=== PATIENT | male | born 1930 | race Caucasian/White ===

== ENCOUNTER 2017-06-02 19:55 | Emergency (ER) | payer MEDICARE ==
[2017-06-02 21:42] LABS: #Lymphocytes 0.8 thou/uL (1.20-3.40); #Monocytes 0.5 thou/uL (0.11-0.59); #Neutrophils 11.4 thou/uL (1.40-6.50); %Basophils 0.1 % (0.0-1.0); %Eosinophils 0.1 % (0.0-10.0); %Lymphocytes 6.5 % (21.0-51.0); %Monocytes 3.7 % (0.0-10.0); Hematocrit 32.8 % (42.0-52.0); Mean Platelet Volume 8.1 fL (7.4-10.4); Red Blood Cell (RBC) Count 3.48 mill/uL (4.70-6.10); White Blood Cell (WBC) Count 12.7 thou/uL (4.8-10.8)
[2017-06-02 22:01] LABS: Lactic Acid - Sepsis 0.9 mmol/L (0.5-2.2)
[2017-06-02 22:05] LABS: ALT (SGPT) Less than 7 U/L (8-55); AST (SGOT) 13 U/L (5-34); Alkaline Phosphatase 68 U/L (40-150); Anion Gap 13 mmol/L (10-20); BUN (Urea Nitrogen) 30 mg/dL (8.4-25.7); Bilirubin, Total 0.5 mg/dL (0.2-1.2); Calc. Creatinine Clearance 0 mL/min (70-130); Calcium 8.3 mg/dL (7.8-10.44); Carbon Dioxide 23 mmol/L (23-31); Chloride 109 mmol/L (98-107); Estimated GFR-MDRD 72; Globulin 2.5 g/dL (2.4-3.5); Lipase 4 U/L (8-78); Protein, Total 5.7 g/dL (5.8-8.1)
[2017-06-02 22:08] LABS: Troponin I 0.012 ng/mL (< 0.028)
[2017-06-02 22:18] LABS: Bilirubin Negative (Negative); Blood, Urine Negative (Negative); Glucose, Urine (Dipstick) Negative (Negative); Ketone, Urine Negative (Negative); Nitrite Positive (Negative); Protein, Urine (Dipstick) Negative (Neg-Trace); Urobilinogen 0.2 mg/dL (0.2-1.0)
[2017-06-02 22:20] LABS: Bacteria/HPF Rare-Few HPF (None Seen); Hyaline Casts/LPF 0-3 HYALINE CAST LPF (0-3 Hyaline); RBC/HPF 0-3 HPF (0-3); Squamous Epithelial 0-3 HPF (0-3)
[2017-06-02] MEDS ORDERED: cefTRIAXone\\ROCEPHIN 1 GM VIAL ONE (22:48)
== END 2017-06-03 01:13 | disposition home or self-care (01) ==
LOC: ERS 19:55
DX: N39.0 Urinary tract infection, site not specified (principal); E78.5 Hyperlipidemia, unspecified; I10 Essential (primary) hypertension; G30.9 Alzheimer's disease, unspecified; F02.80 Dementia in other diseases classified elsewhere, unspecified severity, without behavioral disturbance, psychotic disturbance, mood disturbance, and anxiety; G20 Parkinson's disease; G47.30 Sleep apnea, unspecified; I65.29 Occlusion and stenosis of unspecified carotid artery; Z87.891 Personal history of nicotine dependence; Z86.73 Personal history of transient ischemic attack (TIA), and cerebral infarction without residual deficits; Z79.82 Long term (current) use of aspirin; Z79.899 Other long term (current) drug therapy
CPT/HCPCS: 36415; 51701; 80053; 81003; 81015; 82553; 83605; 83690; 83880; 84484; 85025; 87040; 96365; J0696

== ENCOUNTER 2017-11-19 15:53 | Inpatient (IN) | payer MEDICARE ==
[2017-11-19 16:36] LABS: #Eosinphils 0.1 thou/uL (0.0-0.7); #Lymphocytes 1.3 thou/uL (1.20-3.40); #Monocytes 0.7 thou/uL (0.11-0.59); #Neutrophils 7.4 thou/uL (1.40-6.50); %Basophils 0.1 % (0.0-1.0); %Eosinophils 0.5 % (0.0-10.0); %Monocytes 7.4 % (0.0-10.0); Hemoglobin 11.7 g/dL (14.0-18.0); Mean Corpuscular HGB CONC 30.8 g/dL (32.0-36.0); Mean Corpuscular Hemoglobin 28.2 pg (27.0-31.0); Mean Corpuscular Volume 91.5 fl (80.0-94.0); Mean Platelet Volume 9.4 fL (7.4-10.4); Platelet Count 200 thou/uL (130-400); RBC Distribution Width 15.4 % (11.5-14.5); Red Blood Cell (RBC) Count 4.16 mill/uL (4.70-6.10); White Blood Cell (WBC) Count 9.5 thou/uL (4.8-10.8)
[2017-11-19 16:58] LABS: ALT (SGPT) 16 U/L (8-55); AST (SGOT) 26 U/L (5-34); Albumin 2.9 g/dL (3.4-4.8); Alkaline Phosphatase 76 U/L (40-150); Anion Gap 14 mmol/L (10-20); BUN (Urea Nitrogen) 58 mg/dL (8.4-25.7); Bilirubin, Total 0.4 mg/dL (0.2-1.2); Calc. Creatinine Clearance 0 mL/min (70-130); Calcium 8.4 mg/dL (7.8-10.44); Carbon Dioxide 21 mmol/L (23-31); Chloride 125 mmol/L (98-107); Estimated GFR-MDRD 26; Globulin 3.2 g/dL (2.4-3.5); Glucose 112 mg/dL (83-110); Potassium 4.7 mmol/L (3.5-5.1); Protein, Total 6.1 g/dL (5.8-8.1); Sodium 155 mmol/L (136-145)
--- NOTE | 2017-11-19 17:55 | CT ---
CT OF THE BRAIN WITHOUT CONTRAST: COMPARISON: 08/27/2016 HISTORY: Altered mental status for 2 weeks. TECHNIQUE: Multiple contiguous axial images were obtained in a CT of the brain without contrast. FINDINGS: There are stable scattered hypodensities in the subcortical and periventricular white matter, likely secondary to small vessel ischemic disease. There is prominence of the lateral ventricles which may be secondary to ex vacuole dilatation and other ventricles secondary to cerebral atrophy. Hydrocepha abdirizak cannot be entirely excluded. There is no evidence of intracranial hemorrhage or extraaxial fluid collection. The findings are stable compared to the prior exam. The calvarium and overlying soft tissues are unremarkable. The visualized paranasal sinuses and mast oid air cells are well-aerated. IMPRESSION: Stable exam with small vessel ischemic disease and cerebral atrophy. POS: [facility]
--- NOTE | 2017-11-19 18:06 | RAD ---
SINGLE VIEW OF THE CHEST: COMPARISON: 10/31/2016 HISTORY: Altered mental status. The patient is not eating. FINDINGS: Single view of the chest shows a normal size cardiomediastinal silhouette. The patient is status pos t sternotomy. The pacemaker is unchanged in position. There is no evidence of consolidation, mass, or pleural effusion. IMPRESSION: No evidence of acute cardiopulmonary disease. POS: [facility]
[2017-11-19 18:30] LABS: CKMB 8.1 ng/mL (0-6.6)
[2017-11-19 19:45] LABS: Bilirubin Negative (Negative); Blood, Urine Negative (Negative); Clarity CLEAR (Clear); Glucose, Urine (Dipstick) Negative (Negative); Leukocyte Negative (Negative); Nitrite Negative (Negative); Protein, Urine (Dipstick) Negative (Neg-Trace); Specific Gravity, Urine 1.023 (1.002-1.036); Urobilinogen 0.2 mg/dL (0.2-1.0)
[2017-11-19 20:55] LABS: Troponin I 0.054 ng/mL (< 0.028)
[2017-11-19] MEDS ORDERED: HYDROcodone/Acetaminophen 5/325 mg Tablet PO PRN (22:26)
[2017-11-19] MEDS ORDERED: Ondansetron HCl/PF 4 MG/2 ML Vial IVP PRN (22:26)
[2017-11-19] MEDS ORDERED: Acetaminophen 325 MG TAB PO PRN (22:26)
[2017-11-19] MEDS ORDERED: Sodium Chloride 0.9% 1,000 ML IV SCH (22:28)
[2017-11-19 23:51] LABS: Troponin I 0.065 ng/mL (< 0.028)
[2017-11-19 23:53] VITALS: BMI 21.7
[2017-11-20] MEDS: Dextrose 5% in Water 1,000 ML IV SCH ×3 (00:21→21:38)
[2017-11-20 05:22] LABS: #Eosinphils 0.1 thou/uL (0.0-0.7); #Lymphocytes 1.3 thou/uL (1.20-3.40); #Monocytes 0.6 thou/uL (0.11-0.59); #Neutrophils 6.6 thou/uL (1.40-6.50); %Basophils 0.5 % (0.0-1.0); %Eosinophils 1.4 % (0.0-10.0); %Neutrophils 76.2 % (42.0-75.0); Hemoglobin 10.4 g/dL (14.0-18.0); Mean Corpuscular Hemoglobin 28.1 pg (27.0-31.0); Mean Corpuscular Volume 90.8 fl (80.0-94.0); Mean Platelet Volume 9.5 fL (7.4-10.4); Platelet Count 179 thou/uL (130-400); RBC Distribution Width 15.1 % (11.5-14.5); Red Blood Cell (RBC) Count 3.69 mill/uL (4.70-6.10); White Blood Cell (WBC) Count 8.7 thou/uL (4.8-10.8)
[2017-11-20 05:40] LABS: Anion Gap 12 mmol/L (10-20); BUN (Urea Nitrogen) 60 mg/dL (8.4-25.7); Calc. Creatinine Clearance 29 mL/min (70-130); Calcium 8.2 mg/dL (7.8-10.44); Carbon Dioxide 21 mmol/L (23-31); Cardiac Risk 3.4 (Less than 4.5); Chloride 125 mmol/L (98-107); Cholesterol 110 mg/dl (< 200 Desired); Estimated GFR-MDRD 31; Glucose 138 mg/dL (83-110); HDL Cholesterol 32 mg/dL (>60 Neg Risk); LDL Cholesterol, Calculated 51 mg/dL; Potassium 4.2 mmol/L (3.5-5.1); Sodium 154 mmol/L (136-145); Triglycerides 137 mg/dL (Less than 150)
--- NOTE | 2017-11-20 07:57 | HP ---
DATE OF ADMISSION: 11/19/2017 CHIEF COMPLAINT: Altered mental status. HISTORY OF PRESENT ILLNESS: This is an 87-year-old white male living in a longterm with a histor y of stroke many years ago, with a history of severe Parkinson's disease, and has a very poor quality of life and has alternate mental status changes according to the . Patient is a DNR according t o the . For the past 2 days, he has not been eating or drinking any water and he was looking eveline y dehydrated with no urination. Patient was admitted to the ER for severe dehydration and for sudden change in the mental status. Patient had a CT of the head, which was unremarkable and did not show any evidence of bleed. Chest x-ray was normal. Patient was noted to have a severely dehydrated elec trolytes with sodium of 155 and has high suspicion for another stroke, as he has a history of stroke. The patient has history of known coronary artery disease with history of CABG done in . Since , he has been very stable and he sees Dr. Justin Baez for his Cardiology. Patient is complete ly nonverbal and is unable to talk or give any history at this time. Most of the history is obtained from the patient's at the bedside. PAST MEDICAL HISTORY: 1. Coronary artery disease with CABG. 2. Parkinson's disease. 3. Hypertension. 4. Hyperlipidemia. 5. History of severe Alzheimer's dementia. 6. History of pacemaker placement. 7. History of CVA. 8. History of dyslipidemia. 9. History of recurrent falls. PAST SURGICAL HISTORY: 1. Pacemaker placement. 2. Coronary artery disease with coronary artery bypass graft. 3. History of right femoral neck fracture repair. 4. History of PEG tube placement and subsequent removal. ALLERGIES: Patient is allergic to MORPHINE and IODINE. FAMILY HISTORY: Family history has been reviewed and reconciled, unable to contribute to the present complaint. SOCIAL HISTORY: The patient has advanced directives, which is DNR, I discuss again this with to day. He lives in a longterm at this time and no history of alcohol, no history of illicit drug u se. HOME MEDICATIONS: 1. Amlodipine 5 mg p.o. at bedtime. 2. Aspirin 81 mg daily. 3. Atorvastatin 20 mg daily. 4. Carbidopa 1 tablet p.o. t.i.d. 5. Plavix 75 mg p.o. daily. 6. Docusate 100 mg p.o. daily. 7. Zetia 10 mg at bedtime. 8. Finasteride 5 mg p.o. daily. 9. Lasix 20 mg p.o. daily. 10. Ipratropium nebulizer treatment q.4 hours. 11. Lactulose 30 mg p.o. daily. 12. Keppra 250 mg p.o. b.i.d. 13. Lisinopril 2.5 mg p.o. daily. 14. Metoprolol 100 mg p.o. daily. 15. Potassium mEq p.o. daily. 16. Sertraline. 17. Prednisone 20 mg p.o. daily. REVIEW OF SYSTEMS: Unable to obtain any review of systems at this time because of the severe mental status changes. PHYSICAL EXAMINATION: VITAL SIGNS: Blood pressures are 104/66, heart rate is 103, respirations 18, saturation 96% on room air. GENERAL: The patient is moderately built, moderately nourished, does not appear in acute distress. CARDIOVASCULAR: S1, S2 normal. No murmurs, rubs, or gallops. LUNGS: Bilateral air entry was equal. No wheezing, no crackles. ABDOMEN: Soft, nontender. No guarding, no rebound tenderness. Bowel sounds normal. MUSCULOSKELETAL: No calf tenderness. No pedal edema, no joint tenderness, no joint swelling. SKIN: No cyanosis, no erythema, no rash, no pallor. [employer]: Cranial examination could not be noted, as patient is completely nonverbal. PSYCHIATRIC: No signs of agitation or elise was noted. NECK: No thyromegaly. No JVD was noted. LABORATORY DATA: Sodium is 155, potassium 4.7, chloride is 125, bicarbonate is 21, BUN is 58, creati nine is 2.38. Troponin 0.050. WBC 9.5, hemoglobin 11.7, hematocrit 38.1, platelets are 200. UA was negative for any urinary tract infection. CT of the head was done, which was negative. Chest x-ray was done showed no evidence of any cardiopu lmonary process. ASSESSMENT AND PLAN: 1. Transient ischemic attack. 2. Severe dehydration. 3. Severe hypernatremia. 4. Acute kidney injury on chronic kidney disease. 5. Non-ST elevation myocardial infarction. PLAN: 1. Plan is to start the patient on D5W 100 mL hour and closely monitor for improvement of his sodium levels. Patient has severe free-water deficit secondary to not drinking any water at all. Patient being on Lasix and other diuretics. We will hold off on all these diuretics at this time. 2. Patient has worsening renal functions, likely from dehydration as explained above. We will trudi nue with above fluids and avoid nephrotoxic medications. 3. Patient has elevated troponins, most likely could be demand ischemia or patient has a known histo ry of coronary artery disease with coronary artery bypass graft. I will closely monitor the patient. We will continue the patient on the beta-blockers and statin, and we will plan to do a 2D echo per TIA protocol. 4. We will evaluate the patient for any stroke with an MRI. 5. The patient has severe Parkinson's disease. I will restart the patient on carbidopa and levodopa . Plan to consult Neurology if the patient's mental status gets worsened or did not improve. 6. Deep venous thrombosis prophylaxis, patient is on Lovenox 40 mg subcutaneous daily. I spent 70 minutes with this patient.
[2017-11-20] MEDS ORDERED: Enoxaparin Sodium 40 MG/0.4 ML SYRINGE SC SCH (09:00)
[2017-11-20] MEDS ORDERED: Famotidine/PF 20 mg/2ml Vial SLOW IVP SCH (09:00)
[2017-11-20] MEDS: Famotidine/PF 20 mg/2ml Vial SLOW IVP SCH (09:00)
[2017-11-20] MEDS: Enoxaparin Sodium 30 MG/0.3 ML SYRINGE SC SCH (09:01)
[2017-11-20] MEDS: Clopidogrel Bisulfate 75 MG TAB PO SCH (09:15)
[2017-11-20] MEDS: Carbidopa/Levodopa CR 50-200 mg Tablet PO SCH ×3 (09:15→21:37)
[2017-11-20] MEDS: predniSONE 20 MG TAB PO SCH (09:15)
[2017-11-20] MEDS: Aspirin 81 mg Enteric Coated Tablet PO SCH (09:15)
[2017-11-20] MEDS: Carvedilol 3.125 MG TAB PO SCH ×2 (09:15→16:49)
[2017-11-20] MEDS: Docusate 100 MG CAP PO SCH ×3 (09:16→21:37)
[2017-11-20] MEDS: levETIRAcetam 500 MG TAB PO SCH ×2 (09:16→21:42)
[2017-11-20] MEDS: Finasteride 5 MG TAB PO SCH (09:16)
--- NOTE | 2017-11-20 11:43 | PDOC.PN ---
- Subjective Encounter Start Date: 11/20/17 Encounter Start Time: 11:42 Patient seen and examined, no new issues or complaints, at bedside, all questions answered. - Objective Vital Signs & Weight: Vital Signs (12 hours) Temp Pulse Pulse Pulse Resp BP BP 11/20/17 10:52 90 16 11/20/17 10:04 98 F 102 H 18 11/20/17 09:28 111 H 102 H 104/63 124/75 11/20/17 08:38 108 H 123/67 11/20/17 08:30 98 F 102 H 18 11/20/17 07:36 95 18 11/20/17 04:38 97.2 F L 103 H 17 11/20/17 03:34 106 H 16 BP Pulse Ox 11/20/17 10:52 11/20/17 10:04 118/69 99 11/20/17 09:28 11/20/17 08:38 11/20/17 08:30 11/20/17 07:36 96 11/20/17 04:38 99/66 98 11/20/17 03:34 97 I&O: 11/19/17 11/20/17 11/21/17 06:59 06:59 06:59 Intake Total 600 Balance 600 Result Diagrams: 11/20/17 05:03 11/20/17 05:03 Phys Exam - Physical Examination Constitutional: NAD non verbal HEENT: PERRLA, moist MMs, sclera anicteric Neck: no nodes, no JVD, supple Respiratory: no wheezing, no rales, no rhonchi Cardiovascular: RRR, no significant murmur, no rub Gastrointestinal: soft, non-tender, no distention Musculoskeletal: no edema, pulses present Dx/Plan (1) Mental status change Code(s): R41.82 - ALTERED MENTAL STATUS, UNSPECIFIED Status: Acute (2) JUAN (acute kidney injury) Code(s): N17.9 - ACUTE KIDNEY FAILURE, UNSPECIFIED Status: Acute (3) Dehydration Code(s): E86.0 - DEHYDRATION Status: Acute (4) Hypokalemia Code(s): E87.6 - HYPOKALEMIA Status: Acute (5) Parkinson disease Code(s): G20 - PARKINSON'S DISEASE Status: Acute (6) HLD (hyperlipidemia) Code(s): E78.5 - HYPERLIPIDEMIA, UNSPECIFIED Status: Chronic (7) HTN (hypertension) Code(s): I10 - ESSENTIAL (PRIMARY) HYPERTENSION Status: Chronic (8) History of TIA (transient ischemic attack) Status: Chronic - Plan * Neurological work up pending * Neurological evaluation pending as well * continue current plan of care for now * patient remains confused and not back to his baseline * case and plan d/w patient's at length, she understands and agrees with this plan
--- NOTE | 2017-11-20 21:03 | CON ---
DATE OF CONSULTATION: 11/20/2017 CONSULTING PHYSICIAN: Hospitalist Service. IMPRESSION: 1. Lethargy secondary to dehydration and anorexia. 2. Parkinson's disease with severe dementia. 3. Prior stroke with right-sided weakness. 4. Coronary artery disease. PLAN: 1. Continue rehydration. 2. Speech therapy evaluation to determine if the patient will be able to maintain oral intake. 3. The patient can return to the residential for comfort measures. Mr. Enriquez is an 87-year-old gentleman with multiple medical problems. He has been in the [facility] now for the last 2 years. Over the last 2 weeks, he has deteriorated as far as his level of respo nsiveness. At baseline, his reports that he usually recognizes her, but oftentimes cannot recal l the names of family members. He is unable to do anything for himself including feeding himself. O eveline the last 2 weeks, he has been refusing food and water. He became more lethargic and was brought into the hospital. His sodium level was 155. A CT scan of the brain was unremarkable. He has been placed on IV fluids. His reports he is a bit more responsive today. PAST HISTORY: As listed above including hypertension, hyperlipidemia. PAST SURGICAL HISTORY: Pacemaker implantation. ALLERGIES: MORPHINE, CODEINE. SOCIAL HISTORY: No tobacco or alcohol use. FAMILY HISTORY: Noncontributory. REVIEW OF SYSTEMS: Not obtainable. PHYSICAL EXAMINATION: VITAL SIGNS: Have been stable. He is afebrile at this point. HEENT: Pupils are equal. Conjunctivae are clear. Mucous membranes are dry. NECK: No lymphadenopathy noted. EXTREMITIES: No cyanosis noted or edema. NEUROLOGIC: He was essentially mute. I could not get him to follow any commands. His face was symm etric. He had some rhythmic tremulous movements of the lips. The tone in the right upper extremity was increased as compared to the left. He has more spontaneous movement on the left. He has partial contracture of both lower extremities. SUMMARY: This is an elderly man with dementia who has not been eating or drinking, has become dehydr ated and less responsive. The patient is DO NOT RESUSCITATE by his 's wishes. I do not see anyt regi to offer in his care.
[2017-11-20] MEDS: Amlodipine 5 MG TAB PO SCH (21:37)
[2017-11-20] MEDS: Atorvastatin Calcium 40 MG TAB PO SCH (21:37)
[2017-11-20] MEDS: Ezetimibe 10 MG TAB PO SCH (21:38)
[2017-11-21] MEDS: Famotidine/PF 20 mg/2ml Vial SLOW IVP SCH (08:41)
[2017-11-21] MEDS: Enoxaparin Sodium 30 MG/0.3 ML SYRINGE SC SCH (08:41)
[2017-11-21] MEDS ORDERED: FLU VACC TS2017-18 (>65YR) 0.5 ML SYRINGE IM ONE (09:00)
[2017-11-21] MEDS: Dextrose 5% in Water 1,000 ML IV SCH ×2 (09:09→18:32)
[2017-11-21] MEDS: predniSONE 20 MG TAB PO SCH (09:11)
[2017-11-21] MEDS: Carvedilol 3.125 MG TAB PO SCH ×2 (09:11→17:59)
[2017-11-21] MEDS: Carbidopa/Levodopa CR 50-200 mg Tablet PO SCH ×3 (09:12→20:29)
[2017-11-21] MEDS: levETIRAcetam 500 MG TAB PO SCH ×2 (09:12→20:30)
[2017-11-21] MEDS: Finasteride 5 MG TAB PO SCH (09:12)
[2017-11-21] MEDS: Clopidogrel Bisulfate 75 MG TAB PO SCH (09:12)
[2017-11-21] MEDS: Aspirin 81 mg Enteric Coated Tablet PO SCH (09:12)
[2017-11-21] MEDS: Docusate 100 MG CAP PO SCH ×3 (09:12→20:29)
[2017-11-21] MEDS ORDERED: Esmolol 100 MG/10 ML VIAL IVP PRN (12:15)
[2017-11-21] MEDS ORDERED: Amiodarone HCl 150 MG, Admixture Fee 1 EACH in Dextrose 5% in Water 100 ML IVPB SCH ×6 (14:30)
[2017-11-21] MEDS ORDERED: Amiodarone In Dextrose 200 ML IVPB SCH (14:45)
[2017-11-21] MEDS ORDERED: Digoxin 0.5 MG/2 ML AMP SLOW IVP SCH (14:45)
[2017-11-21] MEDS ORDERED: Metoprolol Tartrate 5 MG/5 ML VIAL IVP SCH ×2 (14:45)
--- NOTE | 2017-11-21 15:09 | CON ---
DATE OF CONSULTATION: 11/21/2017 CARDIOLOGY CONSULTATION REASON FOR CONSULTATION: Atrial flutter with rapid ventricular response. HISTORY OF PRESENT ILLNESS: Mr. Enriquez is an 87-year-old patient, primary orientor is Dr. Justin Baez. The patient was admitted to the hospital with weakness, fatigue, and lack of energy. Failure to thrive. He is thought to be dehydrated. He also had a previous stroke and Dr. Sherwood was consulted, but did not see evidence of new stroke. The patient did develop tachycardia here, he developed atrial flutter with a rapid ventricular respon se. The patient is noncommunicative. MEDICATIONS AT HOME: Atorvastatin 20 mg a day, metoprolol 100 mg a day, but he has been n.p.o. here, he cannot eat, clopidogrel 75 mg a day, furosemide, aspirin, amlodipine, lisinopril, and potassium. REVIEW OF SYSTEMS: Not obtainable. The patient is noncommunicative. PAST MEDICAL HISTORY: 1. Coronary artery disease, previous bypass surgery, previous pacemaker insertion. 2. History of Alzheimer's dementia. 3. History of stroke affecting the right side of his body. PAST SURGICAL HISTORY: 1. Pacemaker insertion. 2. Previous bypass surgery. ALLERGIES: To MORPHINE and IODINE. FAMILY HISTORY: The patient is noncommunicative. SOCIAL HISTORY: Lives in a care home. Medications as listed above. PHYSICAL EXAMINATION: GENERAL: On examination, this is a noncommunicative elderly gentleman. VITAL SIGNS: Blood pressure 110/84 and pulse 150. EYES: Sclerae nonicteric. MOUTH: Mouth mucous branch moist. NECK: Supple, no lymphadenopathy. LUNGS: He is clear anteriorly and laterally, but shallow breath sounds. CARDIAC: Very tachycardic, no murmur, rub or gallop. ABDOMEN: Soft and nontender. EXTREMITIES: No clubbing or cyanosis. There is no edema. SKIN: Warm and dry. NEUROLOGIC: He is not moving his right arm or leg that is chronically weak and nonfunctional. PERTINENT LABORATORY DATA AND IMAGING DATA: 1. Hemoglobin is 10.4. Troponin 0.054. 2. Sodium is high at 154. 3. BUN is 60, creatinine 2.06. 4. EKG did reveal atrial flutter with a very rapid rate of 160. He also has intermittent sinus tach ycardia at rate of 115. ASSESSMENT: 1. Atrial arrhythmias with atrial flutter being the predominant rhythm disturbance now. 2. Previous pacemaker insertion. 3. Weakness and fatigue, thought to be related to dehydration and also hyponatremic. 4. Previous pacemaker. PLAN: 1. Intravenous diltiazem is not available due to national shortage. 2. We will give metoprolol 5 mg IV x2. 3. Digoxin 0.125 mg x1. 4. Hopefully when he is able to eat, he can resume oral beta blockers.
[2017-11-21] MEDS ORDERED: Amiodarone HCl 450 MG, Admixture Fee 1 EACH in Dextrose 5% in Water 250 ML IVPB SCH ×3 (15:15)
--- NOTE | 2017-11-21 15:33 | PDOC.PN ---
- Subjective Encounter Start Date: 11/21/17 Encounter Start Time: 15:31 Patient seen and examined, patient developed a fib recently this afternoon, at bedside, no new issues. - Objective Resuscitation Status: Resuscitation Status DNR:Do Not Resuscitate Vital Signs & Weight: Vital Signs (12 hours) Temp Pulse Resp BP Pulse Ox 11/21/17 15:03 120 H 11/21/17 14:00 110 H 16 97 11/21/17 11:38 98.7 F 155 H 20 110/84 96 11/21/17 10:31 101 H 18 96 11/21/17 08:41 98.4 F 95 16 96 11/21/17 07:18 95 16 96 11/21/17 04:58 98.4 F 102 H 18 116/70 95 Weight Weight 181 lb 4.8 oz I&O: 11/20/17 11/21/17 11/22/17 06:59 06:59 06:59 Intake Total 600 1003 Balance 600 1003 Result Diagrams: 11/20/17 05:03 11/20/17 05:03 Phys Exam - Physical Examination Constitutional: NAD HEENT: PERRLA, moist MMs, sclera anicteric Neck: no nodes, no JVD, supple Respiratory: no wheezing, no rales, no rhonchi Cardiovascular: no significant murmur, irregular Gastrointestinal: soft, non-tender, no distention Musculoskeletal: no edema, pulses present withdraws to pain Dx/Plan (1) Mental status change Code(s): R41.82 - ALTERED MENTAL STATUS, UNSPECIFIED Status: Acute (2) JUAN (acute kidney injury) Code(s): N17.9 - ACUTE KIDNEY FAILURE, UNSPECIFIED Status: Acute (3) Dehydration Code(s): E86.0 - DEHYDRATION Status: Acute (4) Hypokalemia Code(s): E87.6 - HYPOKALEMIA Status: Acute (5) Parkinson disease Code(s): G20 - PARKINSON'S DISEASE Status: Acute (6) HLD (hyperlipidemia) Code(s): E78.5 - HYPERLIPIDEMIA, UNSPECIFIED Status: Chronic (7) HTN (hypertension) Code(s): I10 - ESSENTIAL (PRIMARY) HYPERTENSION Status: Chronic (8) History of TIA (transient ischemic attack) Status: Chronic (9) Atrial fibrillation Code(s): I48.91 - UNSPECIFIED ATRIAL FIBRILLATION Status: Acute - Plan * Afib new onset, esmolol given and amiodarone ordered, cardio consulted, digoxin given * continue current plan of care for now * barium swallow ordered, however, patient unable to swallow, states she would like to see if patient is swallowing in AM, if patient is not then she will consider hospice/palliative care, if he is she'd like to proceed with barium swallow, patient does not want PEG * no other changes in plan of care for now * case and plan d/w patient's at length, she understands and agrees with this plan
[2017-11-21] MEDS: Metoprolol Tartrate 5 MG/5 ML VIAL IVP SCH ×2 (18:35→22:36)
[2017-11-21] MEDS: Amlodipine 5 MG TAB PO SCH (20:29)
[2017-11-21] MEDS: Atorvastatin Calcium 40 MG TAB PO SCH (20:29)
[2017-11-21] MEDS: Ezetimibe 10 MG TAB PO SCH (20:30)
[2017-11-22] MEDS: Metoprolol Tartrate 5 MG/5 ML VIAL IVP SCH ×5 (02:27→18:08)
[2017-11-22] MEDS: Dextrose 5% in Water 1,000 ML IV SCH ×2 (03:54→13:22)
[2017-11-22] MEDS: Famotidine/PF 20 mg/2ml Vial SLOW IVP SCH (08:34)
[2017-11-22] MEDS: Enoxaparin Sodium 30 MG/0.3 ML SYRINGE SC SCH (08:34)
[2017-11-22] MEDS: Carvedilol 3.125 MG TAB PO SCH ×2 (08:35→18:09)
[2017-11-22] MEDS: predniSONE 20 MG TAB PO SCH (08:35)
[2017-11-22] MEDS: Finasteride 5 MG TAB PO SCH (08:36)
[2017-11-22] MEDS: Carbidopa/Levodopa CR 50-200 mg Tablet PO SCH ×2 (08:36→15:44)
[2017-11-22] MEDS: Aspirin 81 mg Enteric Coated Tablet PO SCH (08:36)
[2017-11-22] MEDS: Clopidogrel Bisulfate 75 MG TAB PO SCH (08:36)
[2017-11-22] MEDS: Docusate 100 MG CAP PO SCH ×2 (08:36)
[2017-11-22] MEDS: levETIRAcetam 500 MG TAB PO SCH (08:36)
--- NOTE | 2017-11-22 11:31 | PDOC.PN ---
- Subjective Encounter Start Date: 11/22/17 Encounter Start Time: 11:29 Patient seen and examined, no changes in clinical status since yesterday, and son at bedside, all questions answered. - Objective Resuscitation Status: Resuscitation Status DNR:Do Not Resuscitate Vital Signs & Weight: Vital Signs (12 hours) Temp Pulse Resp BP Pulse Ox 11/22/17 10:18 101 H 18 95 11/22/17 07:50 98.5 F 99 15 102/50 L 95 11/22/17 06:13 108 H 20 94 L 11/22/17 03:50 98.5 F 102 H 22 H 92/53 L 95 11/22/17 01:26 109 H 18 98 11/21/17 23:51 98.5 F 114 H 20 112/66 96 Weight Weight 187 lb 3.2 oz I&O: 11/21/17 11/22/17 11/23/17 06:59 06:59 06:59 Intake Total 1940 Balance 1940 Result Diagrams: 11/20/17 05:03 11/20/17 05:03 Phys Exam - Physical Examination Constitutional: NAD HEENT: PERRLA, moist MMs, sclera anicteric Neck: no nodes, no JVD, supple coarse breathe sounds Cardiovascular: RRR 2/6 NIGEL Gastrointestinal: soft, non-tender, no distention Musculoskeletal: no edema, pulses present withdraws to pain, doesn't respond to verbal stimuli Dx/Plan (1) Mental status change Code(s): R41.82 - ALTERED MENTAL STATUS, UNSPECIFIED Status: Acute (2) JUAN (acute kidney injury) Code(s): N17.9 - ACUTE KIDNEY FAILURE, UNSPECIFIED Status: Acute (3) Dehydration Code(s): E86.0 - DEHYDRATION Status: Acute (4) Hypokalemia Code(s): E87.6 - HYPOKALEMIA Status: Acute (5) Parkinson disease Code(s): G20 - PARKINSON'S DISEASE Status: Acute (6) HLD (hyperlipidemia) Code(s): E78.5 - HYPERLIPIDEMIA, UNSPECIFIED Status: Chronic (7) HTN (hypertension) Code(s): I10 - ESSENTIAL (PRIMARY) HYPERTENSION Status: Chronic (8) History of TIA (transient ischemic attack) Status: Chronic (9) Atrial fibrillation Code(s): I48.91 - UNSPECIFIED ATRIAL FIBRILLATION Status: Acute - Plan * After a long discussion with the family (son and ) a decision was made to pursue hospice care. * Patient's prognosis is very poor, patient had expressed wishes that he does not want any PEG tube placement, and currently patient is unable to swallow, given the significant amount of medical history the patient's best course of action would be to initiate hospice care, family is in agreement * plan d/w case work aide as well, consults placed to hospice services * will DC all aggressive medical management per famliy wishes and initiate comfort care measures for now * DC plans once hospice arrangements made * case and plan d/w patient's and son at length, they understand and agree with this plan
[2017-11-22 13:02] VITALS: BP 122/68; TEMP 98.6
--- NOTE | 2017-11-22 14:21 | PDOC.EVN ---
Event Note - Event Note Event Note: DC summary #[id number]
--- NOTE | 2017-11-22 23:29 | DIS ---
DATE OF ADMISSION: 11/19/2017 DATE OF DISCHARGE: 11/22/2017 ADMITTING DIAGNOSES: Altered mental status, Parkinson's disease, dementia, hypertension, hyperlipide padmaja, history of cerebrovascular accident. DISCHARGE DIAGNOSES: End-stage cerebrovascular disease, atrial fibrillation, Parkinson's disease, hy pertension as well as hyperlipidemia. HOSPITAL COURSE: This is an 87-year-old male with significant comorbidities, admitted to Internal Me dicine Team and was found to have atrial fibrillation as well throughout the admission. The patient was evaluated by Neurology and Cardiology. The patient had a thorough workup done and no reversible causes were noted for his change in mental status. The patient's son and were involved througho ut his care. After a long discussion, it was determined the best approach for this patient at this p oint in time will be to pursue hospice care. After discussion with family, this is what they had opt ed to do. The patient's family selected a hospice facility. The patient was to be discharged to the hospice facility and follow up with hospice physician for further management and care. The patient' s condition at time of discharge was stable. Prognosis very poor. Case and plan discussed with estevan ent's son and at length. They understand and agree with this plan.
--- NOTE | 2017-11-23 11:21 | CON ---
DATE OF CONSULTATION: 11/22/2017 ELECTROPHYSIOLOGIC CONSULTATION REPORT REFERRING PHYSICIAN: Dr. Janett Conroy. I am seeing Mr. Enriquez at our [facility] telemetry floor as electrophysiology executive search consultant for the following problems: 1. Newly found paroxysmal atrial flutter, possibly typical in morphology, mild degenerative atrial fibrillation. 2. History of sick sinus syndrome, status post dual chamber Medtronic Adapta pacemaker in place. 3. Left ventricular dysfunction with LVEF 40%-45%, mild MR, mild aortic regurgitation on a 2D echo from 11/20/2017. 4. History of coronary artery disease, prior bypass surgery in the past. 5. Prior history of stroke with right-sided weakness, residual. 6. History of Alzheimer's disease. 7. History of allergy to IODINE and MORPHINE. 8. General debility. 9. Malnutrition. 10. DNR status. ALLERGIES: MORPHINE and IODINE. MEDICATIONS AT HOME: Included Lipitor, Lopressor 100 mg daily, finasteride, clopidogrel, carbidopa/levodopa, sertraline, furosemide, aspirin, amlodipine, lisinopril, docusate, lactulose, Tylenol, ipratropium, albuterol inhaler, levetiracetam, potassium chloride. SUBJECTIVE: Mr. Enriquez is a poor historian. Most of the history obtained from the family and from the chart. This gentleman was admitted on the with general debility and mental status changes, poor p.o. intake, dehydration. While on monitor at telemetry, being cared for these issues. He developed the sudden tachycardia, narrow complexes, and required an IV Lopressor and esmolol, amiodarone was considered. Eventually he spontaneously converted back to sinus rhythm, and Dr. Conroy evaluated the patient and counseled me for further management. Currently, the patient is back in normal rhythm. He is not having any symptoms related to rapid heartbeats. He has a poor mentation and poor response, but this tends to be his baseline. He has not had complaints of chest pains, no fever, chills or cough. No stroke-like symptoms. REVIEW OF SYSTEMS: Rest of 12 point system otherwise unremarkable. PAST MEDICAL HISTORY: As above, also includes advanced Parkinson's disease. SOCIAL HISTORY: The patient is not smoking, ETOH, or drug use. FAMILY HISTORY: Not contributory. OBJECTIVE DATA: VITAL SIGNS: Blood pressure is 102/50, heart rate 99, respirations 15, temperature 98.5 degrees Fahrenheit. GENERAL: He is alert and oriented x1 man, somewhat lethargic, poorly responding to verbal stimuli. NECK: Supple. Jugular veins not distended. CHEST: Coarse without crackles. CARDIAC: Heart sounds are regular to rate and rhythm. Left precordial pacing insertion site is well healed. Mid sternal scar is noted. ABDOMEN: Benign. Bowel sounds are positive. EXTREMITIES: Lower extremities are without edema, clubbing, or cyanosis. Pulses are adequate. NEUROLOGIC: Patient nonfocal. MUSCULOSKELETAL EXAM: No joint swelling or deformities. SKIN: Without rash. DATABASE: Baseline EKG reveals sinus rhythm. No ST-T changes. Subsequent EKG during the episode of tachycardia yesterday reveals atrial flutter with 2:1 AV conduction. I reviewed the interrogation of his pacemaker, which is Medtronic Adapta device with adequate lead parameters and battery longevity. Episodes of atrial flutter are noted with rapid ventricular rates periodically on occasion, multiple hours in duration. On telemetry strips, the above atrial flutter is noted, which changed to atrial fibrillation. Also, a short nonsustained wide complex tachycardia also seen. ASSESSMENT AND PLAN: Mr. Enriquez is an unfortunate 87-year-old man with prior history of coronary artery disease, [id number] reduced LV function on most recent echocardiogram, also has a prior history of advanced Parkinsonism, Alzheimer's disease, possible prior right-sided stroke. He is markedly debilitated and has poor p.o. intake. In fact, there is discussion about considering hospice for him as future plans. His atrial arrhythmia was nonsustained, and although rates were rapid, but no obvious symptoms were provoked. The atrial flutter initially likely typical isthmus-dependent flutter, but quickly this deterriorated into atrial fibrillation, eventually that self- terminated. I discussed the potential treatment options with the family and we agreed on conservative therapy. For now, hence his debility, it would be hard to justify aggressive therapies in this gentleman. If necessary, amiodarone could be a reasonable choice to suppress his arrhythmias, intermediate term. Ultimately Multaq could be considered and his poor hydration and obvious renal dysfunction with, sotalol or Tikosyn are not good choices. 1. Anticoagulation was also somewhat difficult proposition in this gentleman hence chance for falls, although could be considered, especially that he is mostly bedbound. 2. The hypernatremia, likely due to dehydration, aggressive therapy as before. 3. Left ventricular dysfunction. Continue current management. 4. Pacemaker with adequate function. Routine monitoring. 5. DNR status, possible plans for hospice as per primary team. Thank you for allowing me to participate in the care of this patient. Will be happy to see this patient if further necessary. MTDD
== END 2017-11-22 18:03 | disposition hospice, inpatient (51) | DRG 683 ==
LOC: ERS 15:53 → T4-B 20:00 → 2SE 23:37
PROVIDERS: ADMIT Family Medicine; ATTEND Family Medicine
DX: N17.9 Acute kidney failure, unspecified (principal); E87.0 Hyperosmolality and hypernatremia; E46 Unspecified protein-calorie malnutrition; G20 Parkinson's disease; I24.8 Other forms of acute ischemic heart disease; I48.91 Unspecified atrial fibrillation; I69.351 Hemiplegia and hemiparesis following cerebral infarction affecting right dominant side; I42.9 Cardiomyopathy, unspecified; E78.5 Hyperlipidemia, unspecified; I48.92 Unspecified atrial flutter; E86.0 Dehydration; F02.80 Dementia in other diseases classified elsewhere, unspecified severity, without behavioral disturbance, psychotic disturbance, mood disturbance, and anxiety; I08.0 Rheumatic disorders of both mitral and aortic valves; Z66 Do not resuscitate; Z95.0 Presence of cardiac pacemaker; I25.10 Atherosclerotic heart disease of native coronary artery without angina pectoris; Z95.1 Presence of aortocoronary bypass graft; G30.9 Alzheimer's disease, unspecified; R62.7 Adult failure to thrive; R63.0 Anorexia; E87.6 Hypokalemia; Z87.891 Personal history of nicotine dependence
CPT/HCPCS: 36415; 51701; 70450; 71045; 80048; 80053; 80061; 81003; 82553; 84484; 85025; 87086; 93005; 93010; 93306; 94640; A4216; G8978-GP-CN; G8979-GP-CN; G8980-GP-CN; G8987-GO-CN; G8988-GO-CN; G8989-GO-CN; G8996-GN-CN; G8997-GN-CM; J0282; J1160; J1650; J7070; J7506; J7620; S0028